=== PATIENT | female | born 1975 | race Caucasian/White ===

== ENCOUNTER 2017-05-18 07:50 | Inpatient (IN) | payer MEDICAID ==
[~2017-05-18] VITALS: Ht 157.5 cm; Wt 74.8 kg
[2017-05-18] MEDS ORDERED: LACT. RINGERS/OXYTOCIN 20UNITS 1,000 ML IV SCH (08:03)
[2017-05-18] MEDS ORDERED: LACTATED RINGER'S 1,000 ML IV SCH (08:03)
[2017-05-18] MEDS ORDERED: ACYC400T4 PO (08:12)
[2017-05-18] MEDS ORDERED: NALBUPHINE HCL 10 MG/1ml INJECTION IV PRN (08:15)
[2017-05-18] MEDS ORDERED: PHISODERM TOP SOLN 240ML BTL TOP PRN (08:15)
[2017-05-18] MEDS ORDERED: METHYLERGONOVINE MALEATE 0.2 MG/ML AMP IM PRN (08:15)
[2017-05-18] MEDS ORDERED: LIDOCAINE 2%HCL (LOCAL ANESTH.) INJ 20ML MDV IJ PRN (08:15)
[2017-05-18] MEDS ORDERED: WITCH HAZEL-GLYCERIN PAD TOP PRN (08:15)
[2017-05-18] MEDS ORDERED: DERMOPLAST 60ML BOTTLE TOP PRN (08:15)
[2017-05-18 09:10] LABS: Basophils # (auto) 0 uL; Basophils % (auto) 0.4 % (0.0-2.0); Eosinophils # (auto) 0.1 uL; Eosinophils % (auto) 0.8 % (0.0-7.0); Hematocrit 40.8 % (36.0-46.0); Hemoglobin 13.6 g/dL (12.2-16.2); Lymphocytes # (auto) 1.5 uL; Lymphocytes % (auto) 18.8 % (10.0-50.0); Mean Corpuscular Hemoglobin 30.6 pg (28.0-32.0); Mean Corpuscular Hgb Conc. 33.3 g/dL (32.0-36.0); Mean Corpuscular Volume 91.9 fL (80.0-100.0); Monocytes # (auto) 0.6 uL; Monocytes % (auto) 7.7 % (0.0-12.0); Neutrophils # (auto) 5.9 uL; Neutrophils % (auto) 72.3 % (37.0-80.0); Nucleated Red Blood Cells % 0.1 %; Platelet Count (auto) 205 10^3/uL (140-450); Red Blood Cells 4.44 10^6/uL (4.0-5.20); Red Cell Distribution Width 13.6 % (11.8-14.3); White Blood Cell 8.1 10^3/uL (4.4-10.8)
[2017-05-18 09:23] LABS: Urine Bacteria NONE SEEN /hpf (None Seen); Urine Blood Negative /uL (Negative); Urine Specific Gravity 1.003 (1.001-1.035); Urine WBC 4 /hpf (0 - 5)
[2017-05-18 09:25] LABS: Albumin 2.8 g/dL (3.4-5.0); BUN/Creatinine Ratio 7.7; Bilirubin, Total 0.3 mg/dL (0.2-1.0); Calcium 8.4 mg/dL (8.5-10.1); INR 0.86 (0.9-1.15); Partial Thromboplastin Time 28.1 sec (22.64-33.71); Potassium 3.9 mmol/L (3.5-5.1); Prothrombin Time 9.4 sec (9.37-12.3); Total Protein 6.5 g/dL (6.4-8.2)
[2017-05-18] MEDS ORDERED: IBUPROFEN 600 MG TAB PO PRN (11:30)
[2017-05-18] MEDS ORDERED: DOCUSATE CALCIUM 240 MG CAP PO SCH (11:33)
[2017-05-18] MEDS ORDERED: PREN-96 PO (13:00)
[2017-05-18 15:01] VITALS: BP 129/66
[2017-05-18 19:02] VITALS: BP 119/76
[2017-05-18 23:17] VITALS: BP 131/73
[2017-05-19 03:00] VITALS: BP 126/72
[2017-05-19 07:00] VITALS: BP 119/77
[2017-05-19 11:00] VITALS: BP 142/87
== END 2017-05-19 13:35 | disposition home or self-care (01) | DRG 560 ==
LOC: LDRP 07:50
PROVIDERS: ADMIT Specialist; ATTEND Specialist
PROC: 10D07Z6 Extraction of Products of Conception, Vacuum, Via Natural or Artificial Opening (ICD-10-PCS; principal; 2017-05-18)
PROC: 0HQ9XZZ Repair Perineum Skin, External Approach (ICD-10-PCS; 2017-05-18)
PROC: 10907ZC Drainage of Amniotic Fluid, Therapeutic from Products of Conception, Via Natural or Artificial Opening (ICD-10-PCS; 2017-05-18)
DX: O48.0 Post-term pregnancy (principal); O66.5 Attempted application of vacuum extractor and forceps; O70.0 First degree perineal laceration during delivery; O62.3 Precipitate labor; Z37.0 Single live birth; Z3A.40 40 weeks gestation of pregnancy
CPT/HCPCS: 36415; 59025; 59409; 80053; 81001; 85025; 85610; 85730; 86850; 86870; 86900; 86901; 96365; 96366; J2590

== ENCOUNTER → 2019-05-01 | Emergency (ER) | payer MEDICAID ==
[~2019-05-01] VITALS: Ht 157.5 cm; Wt 58.1 kg
[~2019-05-01] MED LIST: ACYC400T4 PO; FERROUS SULFATE 325 MG TAB PO ONE; PREN-96 PO; SODIUM CHLORIDE 0.9% 1,000 ML IV ONE
[2019-05-01 15:21] LABS: Basophils # (auto) 0.1 10 ^3/uL (0-0.2); Basophils % (auto) 0.4 % (0.0-2.0); Eosinophils # (auto) 0 10 ^3/uL (0-0.8); Eosinophils % (auto) 0.1 % (0.0-7.0); Hemoglobin 10.1 g/dL (12.2-16.2); Mean Corpuscular Hemoglobin 30.3 pg (28.0-32.0); Mean Corpuscular Hgb Conc. 33.7 g/dL (32.0-36.0); Mean Corpuscular Volume 89.9 fL (80.0-100.0); Monocytes # (auto) 0.7 10 ^3/uL (0-1.3); Monocytes % (auto) 4.7 % (0.0-12.0); Neutrophils # (auto) 12.6 10 ^3/uL (1.6-8.6); Neutrophils % (auto) 87.8 % (37.0-80.0); Platelet Count (auto) 234 10^3/uL (140-450); Red Blood Cells 3.34 10^6/uL (4.0-5.20); Red Cell Distribution Width 13.1 % (11.8-14.3); White Blood Cell 14.3 10^3/uL (4.4-10.8)
[2019-05-01 15:36] LABS: INR 1.09 (0.9-1.15); Partial Thromboplastin Time 23.1 sec (23.64-32.05)
[2019-05-01 15:40] LABS: Calcium 7.7 mg/dL (8.5-10.1); Potassium 3.7 mmol/L (3.5-5.1)
[2019-05-01 15:45] LABS: BUN/Creatinine Ratio 19.2; Bilirubin, Total 0.2 mg/dL (0.2-1.0); Total Protein 5.5 g/dL (6.4-8.2)
[2019-05-01 16:48] LABS: Urine Bacteria FEW /hpf (None Seen); Urine Blood 3+ /uL (Negative); Urine Specific Gravity 1.016 (1.001-1.035); Urine WBC 1 /hpf (0 - 5)
[2019-05-01 18:06] VITALS: BP 128/89
== END | disposition home or self-care (01) ==
LOC: EDUNIT# 13:34 → ER 13:55 → EDBD 13:55
DX: N93.9 Abnormal uterine and vaginal bleeding, unspecified (principal); R42 Dizziness and giddiness; Z90.710 Acquired absence of both cervix and uterus
CPT/HCPCS: 36415; 70450; 80053; 81001; 85025; 85610; 85730; 86850; 86900; 86901; 96360; 96361; 99284; J7030